=== PATIENT | male | born 1935 | race Caucasian/White ===

== ENCOUNTER 2020-07-27 09:38 | Emergency (ER) | payer OTHER, BC ==
[2020-07-27 10:08] VITALS: BP 116/61; PULSE 82; TEMP 98; BMI 23.6
[2020-07-27] MEDS ORDERED: DIPHTH,PERTUSS(ACELL),TET 0.5 ML DISP.SYRIN IM ONE ×2 (10:50→11:32)
== END 2020-07-27 12:10 | disposition home or self-care (01) ==
LOC: FER 09:38 → EDSEX 09:38 → MERGE 09:38 → FER 12:10
PROC: 0HQGXZZ Repair Left Hand Skin, External Approach (ICD-10-PCS; principal; 2020-07-27)
PROC: 3E0234Z Introduction of Serum, Toxoid and Vaccine into Muscle, Percutaneous Approach (ICD-10-PCS; 2020-07-27)
DX: S61.217A Laceration without foreign body of left little finger without damage to nail, initial encounter (principal)
CPT/HCPCS: 90715; 99284-25

== ENCOUNTER 2020-08-05 12:12 | Emergency (ER) | payer OTHER, BC ==
[2020-08-05 12:16] VITALS: BP 107/59; PULSE 88; TEMP 98; BMI 23.8
== END 2020-08-05 13:07 | disposition home or self-care (01) ==
LOC: FER 12:12
DX: Z48.02 Encounter for removal of sutures (principal)
CPT/HCPCS: 99281-25

== ENCOUNTER 2022-06-26 16:30 | Emergency (ER) | payer OTHER, BC ==
[2022-06-26 17:13] VITALS: BP 100/50; PULSE 50; RESP 20; TEMP 97.7; BMI 22.2
== END 2022-06-26 17:46 | disposition home or self-care (01) ==
LOC: FER 16:30
DX: S51.001A Unspecified open wound of right elbow, initial encounter (principal); W01.0XXA Fall on same level from slipping, tripping and stumbling without subsequent striking against object, initial encounter
CPT/HCPCS: 99281-25